=== PATIENT | male | born 1960 | race Caucasian/White ===

== ENCOUNTER → 2019-12-10 | Day surgery (SDC) | payer OTHER ==
[2019-12-08 14:42] LABS: BASOPHILS # (AUTO) 0.1 (0.0-0.1); BASOPHILS % 0.8 % (0.0-1.0); EOSINOPHILS # (AUTO) 0.2 (0.0-0.4); EOSINOPHILS % 2.1 % (0.0-6.0); LYMPHOCYTES # (AUTO) 3.2 (1.0-3.2); MEAN CORPUSCULAR HEMOGLOBIN 28.5 pg (28-32); MEAN CORPUSCULAR HGB CONC 32.7 g/dL (31-35); MEAN CORPUSCULAR VOLUME 87.2 fL (81-99); MONOCYTES # (AUTO) 0.8 (0.2-0.8); MONOCYTES % 7.4 % (4.4-11.3); PLATELET COUNT 284 x10e3/uL (140-360); RED BLOOD COUNT 5.96 x10e6/uL (4.3-5.7); RED CELL DISTRIBUTION WIDTH 13.2 % (11.7-14.4)
[2019-12-08 14:58] LABS: ANION GAP 16.3 mmol/L (8-16); BLOOD UREA NITROGEN 13 mg/dL (7-26); BUN/CREATININE RATIO 14 (6-25); CALCIUM 10.6 mg/dL (8.4-10.2); CARBON DIOXIDE 26 mmol/L (22-29); CHLORIDE 104 mmol/L (98-107); CREATININE, SERUM 0.93 mg/dL (0.72-1.25); EST GLOMERULAR FILTRATION RATE > 60 ML/MIN (60-); GLUCOSE 92 mg/dL (74-118); POTASSIUM 4.3 mmol/L (3.5-5.1); SODIUM 142 mmol/L (136-145)
--- NOTE | 2019-12-08 15:09 | Diagnostic Imaging Report ---
EXAMINATION: CHEST 2 VIEWS INDICATION: Preop ^PREOP ^[id number] ^1430 COMPARISON: None FINDINGS: TUBES and LINES: None. LUNGS: Lungs are well inflated. Lungs are clear. There is no evidence of pneumonia or pulmonary edema. PLEURA: No pleural effusion or pneumothorax. HEART AND MEDIASTINUM: The cardiomediastinal silhouette is unremarkable. BONES AND SOFT TISSUES: No acute osseous lesion. Soft tissues are unremarkable. UPPER ABDOMEN: No free air under the diaphragm. IMPRESSION: No acute thoracic abnormality. Signed by: Dr. Clay Carreno M.D. on 12/08/2019 3:07 PM
[~2019-12-10] MED LIST: ACETAMINOPHEN 1000 MG/100 ML IV ONE; BUPIVACAINE HCL 0.5% INJ 30 ML VIAL INJ ONE; DEXAMETHASONE SOD PHOS INJ 4 MG/ML VIAL ONE; FENTANYL CITRATE/PF 100MCG/2 ML INJ ONE; KETOROLAC TROMETHAMINE 30 MG/ML VIAL ONE; LIDOCAINE HCL 2% LOCAL INJ 5 ML SDV VIAL INJ ONE; MIDAZOLAM HCL 2 MG/2 ML VIAL ONE; NEOSTIGMINE 1 MG/ML 10ML VIAL ONE; ONDANSETRON HCL INJ 2MG/ML 2ML 2 MG/ML VIAL ONE; PROPOFOL IV EMULSION 10 MG/ML 20 ML VIAL ONE; SEVOFLURANE INHAL SOLN 250 ML PEN BTL ONE
--- OUTSIDE RECORDS SUMMARY | 2019-12-10 07:54 | XMS REPORT ---
[facility] Address Unknown Phone Unavailable Care Team Providers [employer] Name Role Phone FLORA PALAFOX Unavailable Unavailable Problems This patient has no known problems. Allergies, Adverse Reactions, Alerts This patient has no known allergies or adverse reactions. Medications This patient has no known medications. Results Test Description Test Time Test Comments Text Results Atomic Results Result Comments CHEST 2 VIEWS 2019-12-08 15:06:00 [place] [address] Patient Name: RONNI RODRIGUEZ JR MR #: [id number] : 1960 Age/Sex: 59/M Req #: [id number] Adm Physician: Ordered by: FLORA PALAFOX DPM Report #: [id number] Location: OR Room/Bed: Procedure: [id number] DX/CHEST 2 VIEWS Exam Date: 12/08/19 Exam Time: 1430 REPORT STATUS: Signed EXAMINATION: CHEST 2 VIEWS INDICATION: Preop PREOP [id number] COMPARISON: None FINDINGS: TUBES and LINES: None. LUNGS: Lungs are well inflated. Lungs are clear. There is no evidence of pneumonia or pulmonary edema. PLEURA: No pleural effusion or pneumothorax. HEART AND MEDIASTINUM: The cardiomediastinal silhouette is unremarkable. BONES AND SOFT TISSUES: No acute osseous lesion. Soft tissues are unremarkable. UPPER ABDOMEN: No free air under the diaphragm. IMPRESSION: No acute thoracic abnormality. Signed by: Dr. Clay Carreno M.D. on 12/08/2019 3:07 PM Dictated By: CLAY CARRENO MD, MD [id number] Transcribed By: ALMA on 12/08/19 4225 COPY TO: FLORA PALAFOX DPM
[2019-12-10] MEDS: CEFAZOLIN SOD 1 GM/NS 50ML 100 ML IV ONE (08:06)
[2019-12-10 11:05] VITALS: BP 128/66
--- NOTE | 2019-12-13 23:54 | Operative Report ---
DATE OF PROCEDURE: 12/10/2019 SURGEON: Wiliam Bauer DPM PREOPERATIVE DIAGNOSES: 1. 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 2. Ruptured anterior talofibular ligament, right ankle. 3. Osteochondral talar dome lesion, right ankle. POSTOPERATIVE DIAGNOSES: 1. 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 2. Ruptured anterior talofibular ligament, right ankle. 3. Osteochondral talar dome lesion, right ankle. ANESTHESIA: General endotracheal. HEMOSTASIS: A right thigh tourniquet at 350 mmHg. PROCEDURE IN DETAIL: The patient was taken to the operating room in a mildly sedated state, placed on the operating table in supine position. Following induction of general anesthetic, the right lower extremity was placed on the operating table prior to performing following procedure. Procedure #1: Ankle joint arthroscopy and medial lateral portal were placed and with the saline pop at 60 mmHg the joint was insufflated and a significant amount of hypertrophic synovium was noted within the joint space. The joint was put through range of motion and all loose floaters were flushed from the joint as were the significant amount of tenosynovitis debrided away that having been accomplished and the underlying tissue being evaluated. The talar dome lesion, which was noted on the talar dome was debrided. The underlying tissue was drilled for fenestration. Procedure #2: Repair of the anterior talofibular ligament of the right foot. A linear lateral incision was placed overlying the anterior talofibular ligament, dissected down to the lateral joint capsule and ligament which was then excised. A rupture was noted and repaired. An open arthrotomy was performed through this incision and the talar dome was further inspected and further remodeled. This having been accomplished, the area was once again irrigated with copious amounts of sterile saline solution. A 2.5, 10 mm sonic anchor was used with #2 Force Fiber to repair of the ligament having been accomplished, the area was blocked with 0.5 Marcaine Decadron [place]. A human tissue allograft was used to facilitate the repair and the patient left the operating room, vital signs stable in apparent satisfactory condition, having tolerated both anesthetic and procedure very well. Wiliam Bauer DPM /MODL /[id number]
== END | disposition home or self-care (01) ==
LOC: OR 07:13
PROVIDERS: ATTEND Podiatrist Foot Surgery
DX: S92.144A Nondisplaced dome fracture of right talus, initial encounter for closed fracture (principal); S93.491A Sprain of other ligament of right ankle, initial encounter; M19.271 Secondary osteoarthritis, right ankle and foot; M79.671 Pain in right foot; E66.9 Obesity, unspecified; Z01.810 Encounter for preprocedural cardiovascular examination; Z01.812 Encounter for preprocedural laboratory examination; Z01.811 Encounter for preprocedural respiratory examination
CPT/HCPCS: 27695; 29891; 29898; 36415; 71046; 80048; 85025; 88304; 93005; J0131; J0690; J1100; J1885; J2001; J2250; J2405; J2704; J2710; J3010